=== PATIENT | male | born 1995 | race Caucasian/White ===

== ENCOUNTER 2018-02-08 17:07 | Emergency (ER) | payer SELFPAY ==
[2018-02-08] MEDS ORDERED: NS(*) 0.9% 1000 ML BAG 1,000 ML IV ONE (17:35)
[2018-02-08 17:50] LABS: PLATELET COUNT, AUTOMATED 348 K/uL (150-450)
[2018-02-08] MEDS ORDERED: KETOROLAC 30 MG/ML VIAL IVP ONE (18:00)
--- NOTE | 2018-02-08 18:12 | RADIOLOGY IMAGING REPORT ---
FACILITY: [facility] - [place] PATIENT NAME: El Arizmendi : 1995 MR: [id number] V: [id number] EXAM DATE: ORDERING PHYSICIAN: JACQUIE HOLT TECHNOLOGIST: Location: [facility] - [place] Patient: El Arizmendi : 1995 Visit/Account:[id number] Date of Sevice: 02/08/2018 KUB SINGLE VIEW ABDOMEN History: Abdominal pain COMPARISON: None Findings: 2 views are provided. Bowel gas pattern is nonobstructive. Lung bases are clear. No pneumop eritoneum. No abnormal calcifications. Moderate stool in the rectosigmoid colon. IMPRESSION: No evidence of acute abdominal pathology. Report Dictated By: Wojciech Noe MD at 02/08/2018 6:08 PM Report E-Signed By: Wojciech Noe MD at 02/08/2018 6:09 PM WSN:[id number]
--- NOTE | 2018-02-08 18:39 | ER Report ---
History and Physical Time Seen By MD: 17:20 Hx. of Stated Complaint: abdominal pain, started suddenly about an hour ago HPI/ROS CHIEF COMPLAINT: Abdominal pain HISTORY OF PRESENT ILLNESS: 22-year-old male patient presents to emergency room via EMS with complaints of abdominal pain. Patient states that the pain started suddenly after he had eaten a bowl of cereal. Patient states the pain is right in the epigastric region. He states that he's had this in the past, was admitted to the hospital and found no problems. He states he is not had any problems since then. He states he has been under a lot of stress recently due to finals he is taking for school. Patient states that he did have several bouts of vomiting. He states he is not taking any medication for this. He denies any fevers, chills, diarrhea. REVIEW OF SYSTEMS: Respiratory: No cough, no dyspnea. Cardiovascular: No chest pain, no palpitations. Gastrointestinal: As noted above Musculoskeletal: No back pain. Allergies: Coded Allergies: No Known Drug Allergies (Unverified , 02/08/18) Home Meds No Active Prescriptions or Reported Meds Past Medical/Surgical History Patient denies a pertinent medical or surgical history. Reviewed Nurses Notes: Yes Hx Substance Use Disorder: No Hx Alcohol Use: No Constitutional Vital Sign - Last 24 Hours 02/08/18 02/08/18 02/08/18 02/08/18 17:07 17:08 17:22 17:30 Temp 97.4 Pulse ??? 82 78 Resp 16 B/P (MAP) 119/82 (94) 119/82 113/52 (72) Pulse Ox 98 93 O2 Delivery Room Air 02/08/18 02/08/18 02/08/18 02/08/18 17:37 18:01 18:12 18:27 Pulse 72 67 56 B/P (MAP) 111/89 (96) Pulse Ox 96 95 92 02/08/18 18:47 Pulse 88 Resp 16 B/P (MAP) 101/65 (77) Pulse Ox 92 O2 Delivery Room Air Intake and Output 02/08/18 02/08/18 02/09/18 15:00 23:00 07:00 Intake Total 1000 ml Balance 1000 ml Physical Exam General Appearance: The patient is alert, has no immediate need for airway protection and no current signs of toxicity. ENT: Tympanic membranes are pearly-deal, auditory canals are patent, mucous membranes are moist. Respiratory: Chest is non tender, lungs are clear to auscultation. Cardiac: regular rate and rhythm Gastrointestinal: Abdomen is soft and tender in the bilateral upper quadrants, no masses, bowel sounds normal. Musculoskeletal: Neck: Neck is supple and non tender. Extremities have full range of motion and are non tender. Skin: No rashes or lesions. DIFFERENTIAL DIAGNOSIS: After history and physical exam differential diagnosis was considered for abdominal pain including but not limited to appendicitis, cholecystitis, gastritis and urinary tract infection. Medical Decision Making Data Points Result Diagram: 02/08/18 1720 02/08/18 1720 Laboratory Hematology Test 02/08/18 17:20 02/08/18 17:46 Red Blood Count 5.94 M/uL (4.00-5.60) Mean Corpuscular Volume 81.6 fL (80.0-96.0) Mean Corpuscular Hemoglobin 28.0 pg (26.0-33.0) Mean Corpuscular Hemoglobin Concent 34.3 g/dL (32.0-36.0) Red Cell Distribution Width 13.7 % (11.5-14.5) Mean Platelet Volume 8.0 fL (7.2-11.1) Neutrophils (%) (Auto) 72.7 % (39.4-72.5) Lymphocytes (%) (Auto) 19.0 % (17.6-49.6) Monocytes (%) (Auto) 6.4 % (4.1-12.4) Eosinophils (%) (Auto) 1.4 % (0.4-6.7) Basophils (%) (Auto) 0.5 % (0.3-1.4) Nucleated RBC Relative Count (auto) 0.1 /100WBC Neutrophils # (Auto) 7.9 K/uL (2.0-7.4) Lymphocytes # (Auto) 2.1 K/uL (1.3-3.6) Monocytes # (Auto) 0.7 K/uL (0.3-1.0) Eosinophils # (Auto) 0.2 K/uL (0.0-0.5) Basophils # (Auto) 0.1 K/uL (0.0-0.1) Nucleated RBC Absolute Count (auto) 0.02 K/uL Sodium Level 143 mmol/L (137-145) Potassium Level 3.5 mmol/L (3.5-5.0) Chloride Level 103 mmol/L (98-107) Carbon Dioxide Level 24 mmol/L (22-30) Blood Urea Nitrogen 12 mg/dl (9-21) Creatinine 1.00 mg/dl (0.66-1.25) Glomerular Filtration Rate Calc > 60.0 Random Glucose 98 mg/dl (75-110) Calcium Level 9.5 mg/dl (8.4-10.2) Total Bilirubin 0.9 mg/dl (0.2-1.3) Aspartate Amino Transf (AST/SGOT) 22 U/L (0-35) Alanine Aminotransferase (ALT/SGPT) 40 U/L (0-56) Alkaline Phosphatase 75 U/L (0-126) Total Protein 8.2 gm/dl (6.3-8.2) Albumin 4.6 g/dl (3.5-5.0) Amylase Level 60 U/L (0-110) Lipase 50 U/L (23-300) Helicobacter pylori IgG Antibody Negative (NEGATIVE) Urine Color Yellow Urine Clarity Slightly-cloudy Urine pH 5.0 pH (4.8-9.5) Urine Specific [place] 1.023 Urine Protein 30 mg/dL (NEGATIVE) Urine Glucose (UA) Negative mg/dL (NEGATIVE) Urine Ketones Trace mg/dL (NEGATIVE) Urine Blood Small (NEGATIVE) Urine Nitrite Negative (NEGATIVE) Urine Bilirubin Negative (NEGATIVE) Urine Urobilinogen 4.0 mg/dL (0.2-1.9) Urine Leukocyte Esterase Negative (NEGATIVE) Urine RBC 1 /HPF (0-2/HPF) Urine WBC 10 /HPF (0-5/HPF) Urine Squamous Epithelial Cells Few /LPF (</=FEW) Urine Bacteria Negative /HPF (NONE-FEW) Urine Mucus Few /HPF (NONE-FEW) Chemistry Test 02/08/18 17:20 02/08/18 17:46 White Blood Count 10.9 k/uL (4.5-11.0) Red Blood Count 5.94 M/uL (4.00-5.60) Hemoglobin 16.6 g/dL (14.0-18.0) Hematocrit 48.5 % (42.0-52.0) Mean Corpuscular Volume 81.6 fL (80.0-96.0) Mean Corpuscular Hemoglobin 28.0 pg (26.0-33.0) Mean Corpuscular Hemoglobin Concent 34.3 g/dL (32.0-36.0) Red Cell Distribution Width 13.7 % (11.5-14.5) Platelet Count 348 K/uL (150-450) Mean Platelet Volume 8.0 fL (7.2-11.1) Neutrophils (%) (Auto) 72.7 % (39.4-72.5) Lymphocytes (%) (Auto) 19.0 % (17.6-49.6) Monocytes (%) (Auto) 6.4 % (4.1-12.4) Eosinophils (%) (Auto) 1.4 % (0.4-6.7) Basophils (%) (Auto) 0.5 % (0.3-1.4) Nucleated RBC Relative Count (auto) 0.1 /100WBC Neutrophils # (Auto) 7.9 K/uL (2.0-7.4) Lymphocytes # (Auto) 2.1 K/uL (1.3-3.6) Monocytes # (Auto) 0.7 K/uL (0.3-1.0) Eosinophils # (Auto) 0.2 K/uL (0.0-0.5) Basophils # (Auto) 0.1 K/uL (0.0-0.1) Nucleated RBC Absolute Count (auto) 0.02 K/uL Glomerular Filtration Rate Calc > 60.0 Calcium Level 9.5 mg/dl (8.4-10.2) Total Bilirubin 0.9 mg/dl (0.2-1.3) Aspartate Amino Transf (AST/SGOT) 22 U/L (0-35) Alanine Aminotransferase (ALT/SGPT) 40 U/L (0-56) Alkaline Phosphatase 75 U/L (0-126) Total Protein 8.2 gm/dl (6.3-8.2) Albumin 4.6 g/dl (3.5-5.0) Amylase Level 60 U/L (0-110) Lipase 50 U/L (23-300) Helicobacter pylori IgG Antibody Negative (NEGATIVE) Urine Color Yellow Urine Clarity Slightly-cloudy Urine pH 5.0 pH (4.8-9.5) Urine Specific [place] 1.023 Urine Protein 30 mg/dL (NEGATIVE) Urine Glucose (UA) Negative mg/dL (NEGATIVE) Urine Ketones Trace mg/dL (NEGATIVE) Urine Blood Small (NEGATIVE) Urine Nitrite Negative (NEGATIVE) Urine Bilirubin Negative (NEGATIVE) Urine Urobilinogen 4.0 mg/dL (0.2-1.9) Urine Leukocyte Esterase Negative (NEGATIVE) Urine RBC 1 /HPF (0-2/HPF) Urine WBC 10 /HPF (0-5/HPF) Urine Squamous Epithelial Cells Few /LPF (</=FEW) Urine Bacteria Negative /HPF (NONE-FEW) Urine Mucus Few /HPF (NONE-FEW) Urinalysis Test 02/08/18 17:46 Urine Color Yellow Urine Clarity Slightly-cloudy Urine pH 5.0 pH (4.8-9.5) Urine Specific [place] 1.023 Urine Protein 30 mg/dL (NEGATIVE) Urine Glucose (UA) Negative mg/dL (NEGATIVE) Urine Ketones Trace mg/dL (NEGATIVE) Urine Blood Small (NEGATIVE) Urine Nitrite Negative (NEGATIVE) Urine Bilirubin Negative (NEGATIVE) Urine Urobilinogen 4.0 mg/dL (0.2-1.9) Urine Leukocyte Esterase Negative (NEGATIVE) Urine RBC 1 /HPF (0-2/HPF) Urine WBC 10 /HPF (0-5/HPF) Urine Squamous Epithelial Cells Few /LPF (</=FEW) Urine Bacteria Negative /HPF (NONE-FEW) Urine Mucus Few /HPF (NONE-FEW) EKG/Imaging Imaging KUB SINGLE VIEW ABDOMEN History: Abdominal pain COMPARISON: None Findings: 2 views are provided. Bowel gas pattern is nonobstructive. Lung bases are clear. No pneumoperitoneum. No abnormal calcifications. Moderate stool in the rectosigmoid colon. IMPRESSION: No evidence of acute abdominal pathology. Report Dictated By: Wojciech Noe MD at 02/08/2018 6:08 PM Report E-Signed By: Wojciech Noe MD at 02/08/2018 6:09 PM ED Course/Re-evaluation ED Course Patient was admitted and examined, history and physical were obtained. Differential diagnoses were considered. On examination patient has tenderness in the bilateral upper quadrants. A CBC, CMP, amylase, lipase, H. pylori, KUB x- ray were done. Lab results were unremarkable, urinalysis was also negative. The x-ray showed no acute findings. I discussed the findings with the patient. We will go ahead and discharge patient home at this time. I do not believe that we have any reason to do any further imaging, i.e. CT scan of the abdomen. I discussed the findings with the patient. We will go ahead and discharge him home with supportive treatment. We will have him go on a clear liquid diet. He is to get plenty of rest. I like him use Pepto-Bismol for pain. Patient did not have any episodes of emesis while he was here and so we will refrain from prescribing any nausea medication. Patient verbalized understanding and agreement with plan. Decision to Disposition Date: Feb 08, 2018 Decision to Disposition Time: 18:38 Depart Departure Latest Vital Signs Vital Signs Date Time Temp Pulse Resp B/P (MAP) Pulse Ox O2 Delivery O2 Flow Rate FiO2 02/08/18 18:47 88 16 101/65 (77) 92 Room Air 02/08/18 17:08 97.4 Impression: Primary Impression: Abdominal pain Additional Impression: Gastroenteritis Condition: Improved Disposition: HOME OR SELF-CARE New Scripts No Active Prescriptions or Reported Meds Patient Instructions: Gastroenteritis (ED) Additional Instructions: Increase fluid intake. Clear liquid diet for the next 24-48 hours. After that you may advance diet as tolerated starting with complex carbohydrates ; rice, bread or pasta. Follow up with your primary care provider in the next week. Return to the ER if condition worsens. You may take over the counter Pepto Bismol as needed for cramping, diarrhea and discomfort. Problem Qualifiers Primary Impression: Abdominal pain Abdominal location: epigastric Qualified Codes: R10.13 - Epigastric pain JACQUIE HOLT Feb 08, 2018 18:38
[2018-02-08 18:47] VITALS: BP 101/65
== END 2018-02-08 18:55 | disposition home or self-care (01) ==
LOC: ER 17:07
DX: K52.9 Noninfective gastroenteritis and colitis, unspecified (principal)
CPT/HCPCS: 74018; 81001; 82150; 83690; 85025; 86677; 96361; 96374; 99284; J1885; J7030; 82040; 82247; 82310; 82374; 82435; 82565; 82947; 84075; 84132; 84155; 84295; 84450; 84460; 84520

== ENCOUNTER → 2018-02-08 | Outpatient (CLI) | payer SELFPAY | LOC: AMB 16:40 | PROVIDERS: ATTEND Nurse Practitioner | DX: R10.10 Upper abdominal pain, unspecified (principal); R11.0 Nausea | CPT/HCPCS: A0425; A0427 ==

== ENCOUNTER 2018-03-07 21:06 | Emergency (ER) | payer SELFPAY ==
--- NOTE | 2018-03-07 21:25 | ER Report ---
History and Physical Time Seen By MD: 21:24 Hx. of Stated Complaint: PT REPORTS ABDOMINAL PAIN THAT STARTED ABOUT 45 MINUTES AGO. HAD SAME PAIN LAST MONTH. NO ACCUTE FINDINGS AT THAT TIME. HPI/ROS CHIEF COMPLAINT: epigastric abdominal pain HISTORY OF PRESENT ILLNESS: This is a 22 year old male. He has epigastric abdominal pain that started about 45 minuted prior to coming to the hospital. Sudden onset. Does not radiate. Nothing makes it worse or better. Had nausea and some vomiting. Vomiting orange-yellow bile. No fevers or chills. No diarrhea. He has not tried to eat or drink since the pain started. He ate just prior to the pain starting at about 1999. He had a similar episode not long ago and was seen in the ER. Non-diagnostic at the time. He has no fevers or chills today. REVIEW OF SYSTEMS: Constitutional: As above. Eyes: No vision changes. ENT: No sore throat. No congestion. Cardiovascular: No chest pain. No palpitations. Respiratory: No cough. No shortness of breath. Gastrointestinal: As above. Genitourinary: No dysuria. No frequency Musculoskeletal: No back pain. Skin: No rashes. Neurological: No numbness. No headache. Allergies: Coded Allergies: No Known Drug Allergies (Unverified , 03/07/18) Home Meds Active Scripts Hydrocodone Bit/Acetaminophen (HYDROCODON-ACETAMINOPHEN 5-325) 1 Each Tablet, 1 EACH PO Q4H Y for PAIN, #10 TAB 0 Refills Prov:FAVIAN KELLER MD 03/08/18 Ondansetron (ZOFRAN ODT) 4 Mg Tab.rapdis, 4 MG PO Q6H Y for NAUSEA/VOMITING, # 20 TAB.DEBO 0 Refills Prov:FAVIAN KELLER MD 03/08/18 Reviewed Nurses Notes: Yes Hx Substance Use Disorder: No Hx Alcohol Use: No Constitutional Vital Sign - Last 24 Hours 03/07/18 03/07/18 03/07/18 03/07/18 21:08 21:15 21:25 21:30 Temp 97.8 Pulse 84 80 77 Resp 22 16 16 B/P (MAP) 133/92 113/92 (99) 118/77 (91) Pulse Ox 98 98 100 O2 Delivery Room Air Room Air Nasal Cannula O2 Flow Rate 2.0 2 403/07/18 03/07/18 03/07/18 22:00 22:30 22:45 23:00 Pulse 68 97 90 96 Resp 14 16 18 B/P (MAP) 112/68 (83) 114/81 (92) 107/57 (74) Pulse Ox 97 98 99 98 O2 Delivery Nasal Cannula Nasal Cannula Nasal Cannula O2 Flow Rate 2 2 2 03/07/18 03/08/18 03/08/18 23:30 00:00 00:30 Pulse 95 93 66 Resp 14 14 14 B/P (MAP) 110/62 (78) 113/67 (82) 107/66 (80) Pulse Ox 98 97 98 O2 Delivery Nasal Cannula Nasal Cannula Room Air O2 Flow Rate 2 2 Physical Exam General Appearance: The patient is alert. Acute distress due to pain. Eyes: Pupils are equal, round. No pallor, injection or icterus. ENT: Mucous membranes are moist. Normal oral mucosa. Posterior oropharynx is normal. Neck: Supple and non tender Respiratory: Lungs are clear to auscultation. Cardiovascular: Regular rate and rhythm. No murmurs, gallops or rubs. Normal capillary refill. Gastrointestinal: Abdomen is tender in the epigastric area and somewhat to the right upper. Nondistended. Normal active bowel sounds. No costovertebral angle tenderness with percussion. Neurological: Alert and oriented x3. No focal neurologic deficits Skin: Warm and dry. DIFFERENTIAL DIAGNOSIS: After history and physical exam, differential diagnosis was considered for epigastric pain including but not limited to biliary colic, cholecystitis, peptic ulcer disease, pancreatitis, and gastroenteritis. Medical Decision Making Data Points Result Diagram: 03/07/18210803/07/182108 Laboratory Hematology Test 03/07/18 21:09 Red Blood Count 5.78 M/uL (4.00-5.60) Mean Corpuscular Volume 81.5 fL (80.0-96.0) Mean Corpuscular Hemoglobin 28.0 pg (26.0-33.0) Mean Corpuscular Hemoglobin Concent 34.4 g/dL (32.0-36.0) Red Cell Distribution Width 13.8 % (11.5-14.5) Mean Platelet Volume 7.8 fL (7.2-11.1) Neutrophils (%) (Auto) 56.6 % (39.4-72.5) Lymphocytes (%) (Auto) 33.4 % (17.6-49.6) Monocytes (%) (Auto) 8.2 % (4.1-12.4) Eosinophils (%) (Auto) 1.3 % (0.4-6.7) Basophils (%) (Auto) 0.5 % (0.3-1.4) Nucleated RBC Relative Count (auto) 0.1 /100WBC Neutrophils # (Auto) 8.8 K/uL (2.0-7.4) Lymphocytes # (Auto) 5.2 K/uL (1.3-3.6) Monocytes # (Auto) 1.3 K/uL (0.3-1.0) Eosinophils # (Auto) 0.2 K/uL (0.0-0.5) Basophils # (Auto) 0.1 K/uL (0.0-0.1) Nucleated RBC Absolute Count (auto) 0.01 K/uL Sodium Level 144 mmol/L (137-145) Potassium Level 2.9 mmol/L (3.5-5.0) Chloride Level 102 mmol/L (98-107) Carbon Dioxide Level 23 mmol/L (22-30) Blood Urea Nitrogen 15 mg/dl (9-21) Creatinine 1.10 mg/dl (0.66-1.25) Glomerular Filtration Rate Calc > 60.0 Random Glucose 124 mg/dl (75-110) Calcium Level 10.2 mg/dl (8.4-10.2) Total Bilirubin 0.8 mg/dl (0.2-1.3) Aspartate Amino Transf (AST/SGOT) 37 U/L (0-35) Alanine Aminotransferase (ALT/SGPT) 30 U/L (0-56) Alkaline Phosphatase 80 U/L (0-126) Total Protein 8.3 gm/dl (6.3-8.2) Albumin 4.6 g/dl (3.5-5.0) Amylase Level 73 U/L (0-110) Lipase 77 U/L (23-300) Chemistry Test 03/07/18 21:09 White Blood Count 15.5 k/uL (4.5-11.0) Red Blood Count 5.78 M/uL (4.00-5.60) Hemoglobin 16.2 g/dL (14.0-18.0) Hematocrit 47.1 % (42.0-52.0) Mean Corpuscular Volume 81.5 fL (80.0-96.0) Mean Corpuscular Hemoglobin 28.0 pg (26.0-33.0) Mean Corpuscular Hemoglobin Concent 34.4 g/dL (32.0-36.0) Red Cell Distribution Width 13.8 % (11.5-14.5) Platelet Count 408 K/uL (150-450) Mean Platelet Volume 7.8 fL (7.2-11.1) Neutrophils (%) (Auto) 56.6 % (39.4-72.5) Lymphocytes (%) (Auto) 33.4 % (17.6-49.6) Monocytes (%) (Auto) 8.2 % (4.1-12.4) Eosinophils (%) (Auto) 1.3 % (0.4-6.7) Basophils (%) (Auto) 0.5 % (0.3-1.4) Nucleated RBC Relative Count (auto) 0.1 /100WBC Neutrophils # (Auto) 8.8 K/uL (2.0-7.4) Lymphocytes # (Auto) 5.2 K/uL (1.3-3.6) Monocytes # (Auto) 1.3 K/uL (0.3-1.0) Eosinophils # (Auto) 0.2 K/uL (0.0-0.5) Basophils # (Auto) 0.1 K/uL (0.0-0.1) Nucleated RBC Absolute Count (auto) 0.01 K/uL Glomerular Filtration Rate Calc > 60.0 Calcium Level 10.2 mg/dl (8.4-10.2) Total Bilirubin 0.8 mg/dl (0.2-1.3) Aspartate Amino Transf (AST/SGOT) 37 U/L (0-35) Alanine Aminotransferase (ALT/SGPT) 30 U/L (0-56) Alkaline Phosphatase 80 U/L (0-126) Total Protein 8.3 gm/dl (6.3-8.2) Albumin 4.6 g/dl (3.5-5.0) Amylase Level 73 U/L (0-110) Lipase 77 U/L (23-300) EKG/Imaging EKG Interpretation 12 lead EKG: Rhythm: normal sinus rhythm [place]: normal QRS: normal ST segments: normal Imaging EXAMINATION: CT abdomen with IV contrast CT pelvis with IV contrast History: Epigastric pain TECHNIQUE: Spiral scan was through the abdomen and pelvis during injection of nonionic iodinated intravenous contrast. One of the following dose optimization techniques was utilized in the performance of this exam: Automated exposure control; adjustment of the mA and/or kV according to the patient's size; or use of an iterative reconstruction technique. Specific details can be referenced in the facility's radiology CT exam operational policy. Contrast: 75 mL of IV Isovue-370. COMPARISON STUDIES: none. FINDINGS: Lower chest: negative Liver / biliary: Enlarged measuring 21 cm in length. Cholelithiasis. Pancreas: negative Spleen: Mildly enlarged measuring 14 cm in length. Adrenal glands: negative Kidneys / retroperitoneum: negative Pelvic structures: negative Bowel / peritoneum / mesenteries: negative Vessels: negative Musculoskeletal / Body wall: negative Lymph node assessment: negative IMPRESSION: 1. No evidence of acute abdominal or pelvic pathology. Normal appendix identified. 2. Hepatomegaly. 3. Cholelithiasis. Report Dictated By: Wojciech Noe MD at 03/07/2018 10:45 PM EXAMINATION: LIMITED ABDOMINAL ULTRASOUND DATE: 03/07/2018 10:59 PM INDICATION: Epigastric pain TECHNIQUE: Whitaker scale, color and pulsed Doppler ultrasound images of the right upper quadrant were obtained. COMPARISON: Same day CT abdomen and pelvis. FINDINGS: Pancreas: The pancreas is suboptimally visualized in the body and tail. There is no significant abnormality in the visualized portion. Aorta and IVC: The imaged abdominal aorta and IVC are patent. Liver: The liver shows normal shape, parenchymal echogenicity and echotexture. The right hepatic lobe measures 17 cm craniocaudal, which is upper limit normal. There is no definite focal lesion in the liver. The main portal vein is patent with hepatopedal flow. Bile ducts: The intrahepatic bile ducts are not dilated. The common bile duct measures 4 mm in diameter, which is normal. Gallbladder: The gall bladder is partially decompressed and contains multiple posteriorly shadowing calculi. No apparent gallbladder wall thickening or pericholecystic fluid. Reported negative sonographic Tracy's sign. Kidney: The right kidney measures 8.9 x 3.9 x 4.3 cm. The parenchymal echogenicity and thickness appear within normal range. No focal lesion is demonstrated. No hydronephrosis. No ascites. IMPRESSION: Cholelithiasis with no evidence of cholecystitis. Report Dictated By: Sunny Fernandes MD at 03/08/2018 12:17 AM ED Course/Re-evaluation Clinical Indication for ER IV: Hydration, IV Access ED Course IV started and labs obtained. Morphine 4mg IV and Zofran 4mg IV given to help with pain and nausea. Pain improved. CT scan shows gallstones. Ultrasound showed no sign of cholecystitis. Pain gone. Patient afebrile. Was found to have hypokalemia. Give KCL 20mEq IV. Recommended to follow-up with Dr. Durham as outpatient for re-evaluation and consideration of cholecystectomy as an outpatient. Diet low in fat and increase potassium. Follow-up labs as an outpatient. Has Lortab for pain and Zofran for nausea. Decision to Disposition Date: Mar 08, 2018 Decision to Disposition Time: 00:43 Depart Departure Latest Vital Signs Vital Signs Date Time Temp Pulse Resp B/P (MAP) Pulse Ox O2 Delivery O2 Flow Rate FiO2 03/08/18 00:30 66 14 107/66 (80) 98 Room Air 03/08/18 00:00 2 03/07/18 21:08 97.8 Impression: Primary Impression: Cholelithiasis Condition: Improved Disposition: HOME OR SELF-CARE Referrals: MAGDI DURHAM MD New Scripts Hydrocodone Bit/Acetaminophen (HYDROCODON-ACETAMINOPHEN 5-325) 1 Each Tablet 1 EACH PO Q4H Y for PAIN, #10 TAB 0 Refills Prov: FAVIAN KELLER MD 03/08/18 Ondansetron (ZOFRAN ODT) 4 Mg Tab.rapdis 4 MG PO Q6H Y for NAUSEA/VOMITING, #20 TAB.DEBO 0 Refills Prov: FAVIAN KELLER MD 03/08/18 Patient Instructions: Gallstones (ED) Additional Instructions: Ibuprofen 200mg over the counter tablets, take 4 tablets three times a day with food. Lortab 5/325, one every 4 hours as needed for pain. Zofran 4mg, one every 6 hours as needed for nausea or vomiting. Low fat diet. Call Dr. Durham tomorrow to schedule an appointment with him. If you have fevers and chills, worsening pain or nausea, please return for re- evaluation. Problem Qualifiers Primary Impression: Cholelithiasis Cholelithiasis location: gallbladder Cholecystitis presence: without cholecystitis Biliary obstruction: without biliary obstruction Qualified Codes: K80.20 - Calculus of gallbladder without cholecystitis without obstruction FAVIAN KELLER MD Mar 07, 2018 21:25
[2018-03-07] MEDS ORDERED: NS(*) 0.9% 1000 ML BAG 1,000 ML IV ONE (21:28)
[2018-03-07] MEDS ORDERED: MORPHINE 4 MG/ML SDV IVP ONE (21:30)
[2018-03-07] MEDS ORDERED: ONDANSETRON 4 MG/2 ML VIAL IVP ONE (21:30)
[2018-03-07 21:35] LABS: PLATELET COUNT, AUTOMATED 408 K/uL (150-450)
[2018-03-07] MEDS ORDERED: IOPAMIDOL 76% 75 ML INFUS BTL 75 ML ONE (21:41)
[2018-03-07] MEDS ORDERED: KCL (*) 20 MEQ/100 ML PREMIX 100 ML IV ONE (22:25)
--- NOTE | 2018-03-07 22:56 | RADIOLOGY IMAGING REPORT ---
FACILITY: [facility] PATIENT NAME: El Arizmendi : 1995 MR: [id number] V: [id number] EXAM DATE: [id number] ORDERING PHYSICIAN: FAVIAN KELLER TECHNOLOGIST: Location: [facility] [place] Patient: El Arizmendi : 1995 Visit/Account:[id number] Date of Sevice: 03/07/2018 EXAMINATION: CT abdomen with IV contrast CT pelvis with IV contrast History: Epigastric pain TECHNIQUE: Spiral scan was through the abdomen and pelvis during injection of nonionic iodinated in travenous contrast. One of the following dose optimization techniques was utilized in the performance of this exam: Automated exposure control; adjustment of the mA and/or kV according to the patient's size; or use of an iterative reconstruction technique. Specific details can be referenced in the [facility]'s radiology CT exam operational policy. Contrast: 75 mL of IV Isovue-370. COMPARISON STUDIES: none. FINDINGS: Lower chest: negative Liver / biliary: Enlarged measuring 21 cm in length. Cholelithiasis. Pancreas: negative Spleen: Mildly enlarged measuring 14 cm in length. Adrenal glands: negative Kidneys / retroperitoneum: negative Pelvic structures: negative Bowel / peritoneum / mesenteries: negative Vessels: negative Musculoskeletal / Body wall: negative Lymph node assessment: negative IMPRESSION: 1. No evidence of acute abdominal or pelvic pathology. Normal appendix identified. 2. Hepatomegaly. 3. Cholelithiasis. Report Dictated By: Wojciech Noe MD at 03/07/2018 10:45 PM Report E-Signed By: Wojciech Noe MD at 03/07/2018 10:51 PM WSN:[id number]
--- NOTE | 2018-03-07 23:24 | EKG ---
FACILITY: [facility] - [place] PATIENT NAME: ALBA MICHAEL : 1995 MR: [id number] V: [id number] EXAM DATE: ORDERING PHYSICIAN: FAVIAN KELLER TECHNOLOGIST: REKHA Test Reason : HYPOKALEMIA Blood Pressure : / mmHG Vent. Rate : 095 BPM Atrial Rate : 095 BPM P-R Int : 164 ms QRS Dur : 088 ms QT Int : 358 ms P-R-T Axes : 062 013 037 degrees QTc Int : 449 ms Sinus rhythm Nonspecific ST elevation diffusely - suspect early repolarization, but cannot exclude other causes Abnormal ECG No previous ECGs available Confirmed by JAYLAN BOTELLO ([id number] on 03/08/2018 6:13:15 AM Referred By: Confirmed By:JAYLAN BOTELLO
[2018-03-08] MEDS ORDERED: NS(*) 0.9% 1000 ML BAG 1,000 ML IV ONE
[2018-03-08 00:30] VITALS: BP 107/66
--- NOTE | 2018-03-08 00:34 | RADIOLOGY IMAGING REPORT ---
FACILITY: [facility] - [place] PATIENT NAME: El Arizmendi : 1995 MR: [id number] V: [id number] EXAM DATE: [id number] ORDERING PHYSICIAN: FAVIAN KELLER TECHNOLOGIST: Location: [facility] [place] Patient: El Arizmendi : 1995 Visit/Account:[id number] Date of Sevice: 03/07/2018 EXAMINATION: LIMITED ABDOMINAL ULTRASOUND DATE: 03/07/2018 10:59 PM INDICATION: Epigastric pain TECHNIQUE: Whitaker scale, color and pulsed Doppler ultrasound images of the right upper quadrant were ob tained. COMPARISON: Same day CT abdomen and pelvis. FINDINGS: Pancreas: The pancreas is suboptimally visualized in the body and tail. There is no significant abnor mality in the visualized portion. Aorta and IVC: The imaged abdominal aorta and IVC are patent. Liver: The liver shows normal shape, parenchymal echogenicity and echotexture. The right hepatic lobe measures 17 cm craniocaudal, which is upper limit normal. There is no definite focal lesion in the l iver. The main portal vein is patent with hepatopedal flow. Bile ducts: The intrahepatic bile ducts are not dilated. The common bile duct measures 4 mm in diamet er, which is normal. Gallbladder: The gall bladder is partially decompressed and contains multiple posteriorly shadowing c alculi. No apparent gallbladder wall thickening or pericholecystic fluid. Reported negative sonogra phic Tracy's sign. Kidney: The right kidney measures 8.9 x 3.9 x 4.3 cm. The parenchymal echogenicity and thickness appe ar within normal range. No focal lesion is demonstrated. No hydronephrosis. No ascites. IMPRESSION: Cholelithiasis with no evidence of cholecystitis. Report Dictated By: Sunny Fernandes MD at 03/08/2018 12:17 AM Report E-Signed By: Sunny Fernandes MD at 03/08/2018 12:31 AM WSN:[id number]
[2018-03-08] MEDS ORDERED: ONDA4TAB PO (00:44)
[2018-03-08] MEDS ORDERED: LOR5/325 PO (00:44)
[2018-03-08] MEDS ORDERED: ACET/HYDROC 5/325MG TH ER ONLY 2 TAB/BOTTLE PO ONE (00:50)
[2018-03-08] MEDS ORDERED: ONDANSETRON 4 MG ODT TH SL ONE (00:50)
== END 2018-03-08 00:57 | disposition home or self-care (01) ==
LOC: ER 21:14
DX: K80.20 Calculus of gallbladder without cholecystitis without obstruction (principal); E87.6 Hypokalemia
CPT/HCPCS: 74177; 76705; 82150; 83690; 85025; 93005; 96361; 96365; 96375; 99284; J2270; J2405; J3480; J7030; Q9967; S0119; 82040; 82247; 82310; 82374; 82435; 82565; 82947; 84075; 84132; 84155; 84295; 84450; 84460; 84520

== ENCOUNTER 2018-04-22 18:44 | Emergency (ER) | payer OTHER ==
[~2018-04-22 18:44] MED LIST changes: -HYDR-4309 PO; -ONDA4TAB97 PO
[2018-04-22] MEDS ORDERED: NS(*) 0.9% 1000 ML BAG 1,000 ML IV ONE (18:58)
[2018-04-22] MEDS ORDERED: fentaNYL CITR 100 MCG/2 ML AMP IVP ONE (19:00)
[2018-04-22] MEDS ORDERED: ONDANSETRON 4 MG/2 ML VIAL IVP ONE (19:00)
--- NOTE | 2018-04-22 19:11 | ER Report ---
History and Physical Time Seen By MD: 18:46 Hx. of Stated Complaint: abdominal pain started this afternoon. got worse after eating spicy food. has a history of gall stones HPI/ROS CHIEF COMPLAINT: Right upper quadrant pain HISTORY OF PRESENT ILLNESS: 22-year-old male presents ambulatory to the ER complaining of severe right upper quadrant pain. He recently ate a spicy meal. Patient was seen here 2 months ago on 03/07/18 at which time he had right upper quadrant pain. CAT scan shows cholelithiasis. He was advised to follow- up as an outpatient with Dr. Landon and separation of the left scopic, cholecystectomy. Patient failed to do so. He now notes 10 out of 10 right upper quadrant pain with nausea but no vomiting. He denies fever or chills. He denies dysuria, frequency or hematuria. REVIEW OF SYSTEMS: Respiratory: No cough, no dyspnea. Cardiovascular: No chest pain, no palpitations. Gastrointestinal: As above Musculoskeletal: No back pain. Allergies: Coded Allergies: No Known Drug Allergies (Unverified , 04/22/18) Home Meds Active Scripts Ondansetron Hcl (ZOFRAN) 4 Mg Tablet, 4 MG PO Q6H for vomiting, #15 Prov:LUCIO CONTEH DO 04/22/18 Hydrocodone Bit/Acetaminophen (NORCO 5-325 TABLET) 1 Each Tablet, 1 EACH PO Q4H Y for PAIN, #15 TAB Prov:LUCIO CONTEH DO 04/22/18 Discontinued Scripts Hydrocodone Bit/Acetaminophen (HYDROCODON-ACETAMINOPHEN 5-325) 1 Each Tablet, 1 EACH PO Q4H Y for PAIN, #10 TAB 0 Refills Prov:FAVIAN KELLER MD 03/08/18 Ondansetron (ZOFRAN ODT) 4 Mg Tab.rapdis, 4 MG PO Q6H Y for NAUSEA/VOMITING, # 20 TAB.DEBO 0 Refills Prov:FAVIAN KELLER MD 03/08/18 Reviewed Nurses Notes: Yes Old Medical Records Reviewed: Yes Hx Substance Use Disorder: No Hx Alcohol Use: No Constitutional Vital Sign - Last 24 Hours 04/22/18 04/22/18 04/22/18 04/22/18 18:44 18:46 18:47 18:59 Temp 97.5 Pulse ??? 77 ??? Resp 20 B/P (MAP) 117/90 117/90 (99) Pulse Ox 98 O2 Delivery Room Air 04/22/18 04/22/18 04/22/18 04/22/18 19:00 19:14 19:29 19:30 Pulse 70 75 B/P (MAP) 127/93 (104) 111/69 (83) Pulse Ox 100 100 04/22/18 04/22/18 04/22/18 04/22/18 19:44 19:59 20:00 20:14 Pulse 81 93 73 B/P (MAP) ???/??? (1665) Pulse Ox 100 100 100 04/22/18 04/22/18 20:19 20:32 Pulse 68 B/P (MAP) 138/89 (105) Pulse Ox 100 Physical Exam General Appearance: The patient is alert, has no immediate need for airway protection and no current signs of toxicity.. Vital signs stable, afebrile, pulse ox normal HEENT: Pupils equal and round no injection. Oropharynx without redness or exudate, mucous members are moist Respiratory: Chest is non tender, lungs are clear to auscultation. Cardiac: regular rate and rhythm Gastrointestinal: Abdomen is soft. There is moderate right upper quadrant tenderness with positive Tracy sign, no masses, bowel sounds normal. Musculoskeletal: Neck: Neck is supple and non tender. Extremities have full range of motion and are non tender. Skin: No rashes or lesions. DIFFERENTIAL DIAGNOSIS: After history and physical exam differential diagnosis was considered for abdominal pain including but not limited to appendicitis, cholecystitis, gastritis and urinary tract infection. Medical Decision Making Data Points Result Diagram: 04/22/18200204/22/182002 Laboratory Hematology Test 04/22/18 20:03 Red Blood Count 5.52 M/uL (4.00-5.60) Mean Corpuscular Volume 82.8 fL (80.0-96.0) Mean Corpuscular Hemoglobin 28.4 pg (26.0-33.0) Mean Corpuscular Hemoglobin Concent 34.3 g/dL (32.0-36.0) Red Cell Distribution Width 13.4 % (11.5-14.5) Mean Platelet Volume 8.1 fL (7.2-11.1) Neutrophils (%) (Auto) 83.6 % (39.4-72.5) Lymphocytes (%) (Auto) 10.4 % (17.6-49.6) Monocytes (%) (Auto) 5.1 % (4.1-12.4) Eosinophils (%) (Auto) 0.6 % (0.4-6.7) Basophils (%) (Auto) 0.3 % (0.3-1.4) Nucleated RBC Relative Count (auto) 0.0 /100WBC Neutrophils # (Auto) 11.2 K/uL (2.0-7.4) Lymphocytes # (Auto) 1.4 K/uL (1.3-3.6) Monocytes # (Auto) 0.7 K/uL (0.3-1.0) Eosinophils # (Auto) 0.1 K/uL (0.0-0.5) Basophils # (Auto) 0.0 K/uL (0.0-0.1) Nucleated RBC Absolute Count (auto) 0.00 K/uL Sodium Level 142 mmol/L (137-145) Potassium Level 4.2 mmol/L (3.5-5.0) Chloride Level 104 mmol/L (98-107) Carbon Dioxide Level 28 mmol/L (22-30) Blood Urea Nitrogen 14 mg/dl (9-21) Creatinine 1.00 mg/dl (0.66-1.25) Glomerular Filtration Rate Calc > 60.0 Random Glucose 105 mg/dl (75-110) Calcium Level 9.2 mg/dl (8.4-10.2) Total Bilirubin 0.5 mg/dl (0.2-1.3) Aspartate Amino Transf (AST/SGOT) 42 U/L (0-35) Alanine Aminotransferase (ALT/SGPT) 47 U/L (0-56) Alkaline Phosphatase 65 U/L (0-126) Total Protein 7.1 gm/dl (6.3-8.2) Albumin 4.0 g/dl (3.5-5.0) Amylase Level 57 U/L (0-110) Lipase 48 U/L (23-300) Chemistry Test 04/22/18 20:03 White Blood Count 13.4 k/uL (4.5-11.0) Red Blood Count 5.52 M/uL (4.00-5.60) Hemoglobin 15.7 g/dL (14.0-18.0) Hematocrit 45.7 % (42.0-52.0) Mean Corpuscular Volume 82.8 fL (80.0-96.0) Mean Corpuscular Hemoglobin 28.4 pg (26.0-33.0) Mean Corpuscular Hemoglobin Concent 34.3 g/dL (32.0-36.0) Red Cell Distribution Width 13.4 % (11.5-14.5) Platelet Count 248 K/uL (150-450) Mean Platelet Volume 8.1 fL (7.2-11.1) Neutrophils (%) (Auto) 83.6 % (39.4-72.5) Lymphocytes (%) (Auto) 10.4 % (17.6-49.6) Monocytes (%) (Auto) 5.1 % (4.1-12.4) Eosinophils (%) (Auto) 0.6 % (0.4-6.7) Basophils (%) (Auto) 0.3 % (0.3-1.4) Nucleated RBC Relative Count (auto) 0.0 /100WBC Neutrophils # (Auto) 11.2 K/uL (2.0-7.4) Lymphocytes # (Auto) 1.4 K/uL (1.3-3.6) Monocytes # (Auto) 0.7 K/uL (0.3-1.0) Eosinophils # (Auto) 0.1 K/uL (0.0-0.5) Basophils # (Auto) 0.0 K/uL (0.0-0.1) Nucleated RBC Absolute Count (auto) 0.00 K/uL Glomerular Filtration Rate Calc > 60.0 Calcium Level 9.2 mg/dl (8.4-10.2) Total Bilirubin 0.5 mg/dl (0.2-1.3) Aspartate Amino Transf (AST/SGOT) 42 U/L (0-35) Alanine Aminotransferase (ALT/SGPT) 47 U/L (0-56) Alkaline Phosphatase 65 U/L (0-126) Total Protein 7.1 gm/dl (6.3-8.2) Albumin 4.0 g/dl (3.5-5.0) Amylase Level 57 U/L (0-110) Lipase 48 U/L (23-300) EKG/Imaging Imaging Old CT report reviewed from 03/07/18, see below CT abdomen with IV contrast CT pelvis with IV contrast History: Epigastric pain TECHNIQUE: Spiral scan was through the abdomen and pelvis during injection of nonionic iodinated intravenous contrast. One of the following dose optimization techniques was utilized in the performance of this exam: Automated exposure control; adjustment of the mA and/or kV according to the patient's size; or use of an iterative reconstruction technique. Specific details can be referenced in the facility's radiology CT exam operational policy. Contrast: 75 mL of IV Isovue-[id number]. COMPARISON STUDIES: none. FINDINGS: Lower chest: negative Liver / biliary: Enlarged measuring 21 cm in length. Cholelithiasis. Pancreas: negative Spleen: Mildly enlarged measuring 14 cm in length. Adrenal glands: negative Kidneys / retroperitoneum: negative Pelvic structures: negative Bowel / peritoneum / mesenteries: negative Vessels: negative Musculoskeletal / Body wall: negative Lymph node assessment: negative IMPRESSION: 1. No evidence of acute abdominal or pelvic pathology. Normal appendix identified. 2. Hepatomegaly. 3. Cholelithiasis. Old ultrasound report from 03/07/18 reviewed INDICATION: Epigastric pain TECHNIQUE: Whitaker scale, color and pulsed Doppler ultrasound images of the right upper quadrant were obtained. COMPARISON: Same day CT abdomen and pelvis. FINDINGS: Pancreas: The pancreas is suboptimally visualized in the body and tail. There is no significant abnormality in the visualized portion. Aorta and IVC: The imaged abdominal aorta and IVC are patent. Liver: The liver shows normal shape, parenchymal echogenicity and echotexture. The right hepatic lobe measures 17 cm craniocaudal, which is upper limit normal. There is no definite focal lesion in the liver. The main portal vein is patent with hepatopedal flow. Bile ducts: The intrahepatic bile ducts are not dilated. The common bile duct measures 4 mm in diameter, which is normal. Gallbladder: The gall bladder is partially decompressed and contains multiple posteriorly shadowing calculi. No apparent gallbladder wall thickening or pericholecystic fluid. Reported negative sonographic Tracy's sign. Kidney: The right kidney measures 8.9 x 3.9 x 4.3 cm. The parenchymal echogenicity and thickness appear within normal range. No focal lesion is demonstrated. No hydronephrosis. No ascites. IMPRESSION: Cholelithiasis with no evidence of cholecystitis. ED Course/Re-evaluation Clinical Indication for ER IV: Hydration, IV Access ED Course Patient was admitted to an examination room. H&P was done. The dental diagnoses was considered. Patient was treated with IV fluids, Zofran and fentanyl. His diagnostic laboratory studies show no elevation of the LFTs, lipase or amylase. Patient likely has acute cholecystitis. Patient's advised clear liquid diet. He is given medication for nausea and pain control. He is advised to follow-up with general surgery, Dr. Durham for evaluation for lumbar scopic, cholecystectomy. Decision to Disposition Date: Apr 22, 2018 Decision to Disposition Time: 19:10 Depart Departure Latest Vital Signs Vital Signs Date Time Temp Pulse Resp B/P (MAP) Pulse Ox O2 Delivery O2 Flow Rate FiO2 04/22/18 20:32 138/89 (105) 04/22/18 20:19 68 100 04/22/18 18:46 97.5 20 Room Air Impression: Primary Impression: Right upper quadrant abdominal pain Additional Impression: History of cholelithiasis Condition: Improved Referrals: MAGDI DURHAM MD New Scripts Ondansetron Hcl (ZOFRAN) 4 Mg Tablet 4 MG PO Q6H for vomiting, #15 Prov: LUCIO CONTEH DO 04/22/18 Hydrocodone Bit/Acetaminophen (NORCO 5-325 TABLET) 1 Each Tablet 1 EACH PO Q4H Y for PAIN, #15 TAB Prov: LUCIO CONTEH DO 04/22/18 Patient Instructions: Gallstones (ED) Additional Instructions: Avoid fatty or greasy food Follow clear liquid diet for 24 hours and advance to the brat diet, bananas, rice, applesauce and toast Contact general surgery, Dr. Landon for an appointment after you finish school for laparoscopic cholecystectomy Problem Qualifiers LUCIO CONTEH DO Apr 22, 2018 19:11
[2018-04-22 20:13] LABS: PLATELET COUNT, AUTOMATED 248 K/uL (150-450)
[2018-04-22 20:32] VITALS: BP 138/89
[2018-04-22] MEDS ORDERED: ONDA4TAB97 PO (20:39)
[2018-04-22] MEDS ORDERED: HYDR-4309 PO (20:39)
[2018-04-22] MEDS ORDERED: ACET/HYDROC 5/325MG TH ER ONLY 2 TAB/BOTTLE PO ONE (20:45)
[2018-04-22] MEDS ORDERED: ONDANSETRON 4 MG ODT TH SL ONE (20:45)
== END 2018-04-22 20:47 | disposition home or self-care (01) ==
LOC: ER 19:02
DX: K80.20 Calculus of gallbladder without cholecystitis without obstruction (principal)
CPT/HCPCS: 36415; 82150; 83690; 85025; 96361; 96374; 96375; 99284; J2405; J3010; J7030; S0119; 82040; 82247; 82310; 82374; 82435; 82565; 82947; 84075; 84132; 84155; 84295; 84450; 84460; 84520

== ENCOUNTER → 2018-04-22 | Outpatient (CLI) | payer OTHER ==
[~2018-04-22] MED LIST: HYDR-4309 PO; LOR5/325 PO; ONDA4TAB PO; ONDA4TAB97 PO
== END ==
LOC: AMB 19:15
PROVIDERS: ATTEND Nurse Practitioner
DX: R10.11 Right upper quadrant pain (principal)